=== PATIENT | female | born 1965 | race Caucasian/White ===

== ENCOUNTER → 2017-01-05 | Outpatient (CLI) | payer BC | END | disposition home or self-care (01) | DX: R26.2 Difficulty in walking, not elsewhere classified (principal); M25.561 Pain in right knee; M25.661 Stiffness of right knee, not elsewhere classified; M17.11 Unilateral primary osteoarthritis, right knee; M62.81 Muscle weakness (generalized); Z74.1 Need for assistance with personal care | CPT/HCPCS: 97161 GP; 97165 GO; 97530 GP; 97537 GO ==

== ENCOUNTER 2017-01-31 21:31 | Inpatient (IN) | payer BC, OTHER ==
[~2017-01-31] VITALS: Ht 154.9 cm; Wt 88.6 kg
[~2017-01-31 21:31] MED LIST: IBUPROFEN800 MG PO; SYNTHROID50 MCG PO; TRAMADOL HCL50 MG PO; VITAMIN D32000 UNI1 PO; ZOCOR20 MG PO
[2017-02-01 06:33] VITALS: BP 115/79
[2017-02-01 10:41] LABS: HEMATOCRIT 41.8 % (36.0-46.0); MCH 30.2 PG (29.0-34.0); MCHC 32.8 G/DL (30.0-36.0); MCV 92.3 FL (83-99); MEAN PLAT.VOLUME 9.3 uM^3 (9.5-12.4); PLATELET COUNT 257 K/uL (156-360); RBC DIS.WIDTH-CV 12.4 % (11.8-14.6); RBC DIS.WIDTH-SD 42.6 % (39-53); RED BLOOD COUNT 4.53 M/uL (3.80-5.20); WHITE BLOOD COUNT 9.2 K/uL (4.1-10.2)
[2017-02-01 11:36] VITALS: BP 147/75
[2017-02-01 16:13] VITALS: BP 117/71
[2017-02-01 20:05] VITALS: BP 104/64
[2017-02-01 23:14] VITALS: BP 116/67
[2017-02-02 04:13] VITALS: BP 122/70
[2017-02-02 06:23] LABS: MCV 90.7 FL (83-99)
[2017-02-02 06:44] LABS: ANION GAP 8 MEQ/L (2-14); CHLORIDE 107 MEQ/L (99-109); GFR ESTIMATE (CALCULATED) > 59 mL/min/; GLUCOSE 116 mg/dL (70-99); POTASSIUM 3.9 MEQ/L (3.7-5.4); SAMPLE HEMOLYSIS CHECK 0; SAMPLE ICTERIC CHECK 0; SAMPLE LIPEMIA CHECK 0; SODIUM 141 MEQ/L (136-147); UREA NITROGEN (BUN) 10 mg/dL (9-23)
[2017-02-02 07:26] VITALS: BP 127/65
[2017-02-02 16:01] VITALS: BP 140/76
[2017-02-02 19:32] VITALS: BP 145/76
[2017-02-02 23:45] VITALS: BP 118/62
[2017-02-03 03:14] VITALS: BP 127/72
[2017-02-03 07:27] LABS: HEMATOCRIT 43.1 % (36.0-46.0); MCV 90.7 FL (83-99)
[2017-02-03 08:06] VITALS: BP 125/80
[2017-02-03] MEDS ORDERED: SENNA PLUS TAB1 EACH PO (08:12)
[2017-02-03] MEDS ORDERED: ENDOCET 5-3251 EACH PO (08:12)
[2017-02-03] MEDS ORDERED: OXYCONTIN10 MG PO (08:12)
[2017-02-03] MEDS ORDERED: LOVENOX40 MG/0.4 SC (08:12)
== END 2017-02-03 17:10 | disposition home or self-care (01) | DRG 470 ==
LOC: 2SOUTH → ENRESERV 21:31 → 2SOUTH 02-01 05:24 → ENRESERV 02-01 09:24 → 2SOUTH 02-01 09:32 → 3EAST 02-01 11:00 → 2SOUTH 02-01 11:36 → 3EAST 02-03 17:10
PROVIDERS: Orthopaedic Surgery
PROC: 0SRC0J9 Replacement of Right Knee Joint with Synthetic Substitute, Cemented, Open Approach (ICD-10-PCS; principal; 2017-02-01)
DX: M17.11 Unilateral primary osteoarthritis, right knee (principal); E03.9 Hypothyroidism, unspecified; G43.909 Migraine, unspecified, not intractable, without status migrainosus; E55.9 Vitamin D deficiency, unspecified; G47.30 Sleep apnea, unspecified; E78.00 Pure hypercholesterolemia, unspecified; Z80.7 Family history of other malignant neoplasms of lymphoid, hematopoietic and related tissues; Z86.14 Personal history of Methicillin resistant Staphylococcus aureus infection; Z90.710 Acquired absence of both cervix and uterus
CPT/HCPCS: 73560; 80048; 85014; 85018; 85027; 94799; C1713; J0330; J0690; J1100; J1170; J1650; J1885; J2250; J2405; J3010; J3370; J7050; Q0175

== ENCOUNTER 2017-02-15 12:11 | Emergency (ER) | payer BC, OTHER ==
[~2017-02-15] VITALS: Ht 154.9 cm; Wt 78.3 kg
[~2017-02-15 12:11] MED LIST changes: +ENDOCET 5-3251 EACH PO; +LOVENOX40 MG/0.4 SC; +OXYCONTIN10 MG PO; +SENNA PLUS TAB1 EACH PO
[2017-02-15] MEDS ORDERED: BACTRIM,SEPT1 TABLET PO (19:52)
[2017-02-15] MEDS ORDERED: ATARAX,VISTARIL25 MG PO (19:52)
[2017-02-15] MEDS ORDERED: PREDNISONE20 MG PO (19:52)
[2017-02-15] MEDS ORDERED: KEFLEX500 MG PO (19:52)
[2017-02-15 20:37] VITALS: BP 108/90
== END 2017-02-15 20:39 | disposition home or self-care (01) ==
LOC: EME 12:11
DX: L24.0 Irritant contact dermatitis due to detergents (principal); L73.9 Follicular disorder, unspecified; Z96.651 Presence of right artificial knee joint; Z98.890 Other specified postprocedural states; Z88.6 Allergy status to analgesic agent
CPT/HCPCS: 99281; 99284; J0696; J1200; J2930; S0028

== ENCOUNTER 2017-05-23 21:27 | Inpatient (IN) | payer BC, OTHER ==
[~2017-05-23] VITALS: Ht 154.9 cm; Wt 81.6 kg
[~2017-05-23 21:27] MED LIST changes: +ATARAX,VISTARIL25 MG PO; +BACTRIM,SEPT1 TABLET PO; +BENADRYL50 MG PO; +KEFLEX500 MG PO; +PREDNISONE20 MG PO
[2017-05-24 07:51] VITALS: BP 122/74
[2017-05-24 13:45] LABS: HEMATOCRIT 43.8 % (36.0-46.0); HEMOGLOBIN 14.3 G/DL (11.9-15.5); MCH 29.5 PG (29.0-34.0); MCHC 32.6 G/DL (30.0-36.0); MCV 90.5 FL (83-99); PLATELET COUNT 272 K/uL (156-360); RBC DIS.WIDTH-CV 11.9 % (11.8-14.6); RBC DIS.WIDTH-SD 39.6 % (39-53); RED BLOOD COUNT 4.84 M/uL (3.80-5.20); WHITE BLOOD COUNT 8.2 K/uL (4.1-10.2)
[2017-05-24 15:15] VITALS: BP 140/82
[2017-05-24 20:31] VITALS: BP 134/82
[2017-05-24 23:50] VITALS: BP 124/69
[2017-05-25 04:05] VITALS: BP 126/79
[2017-05-25 05:46] LABS: HEMATOCRIT 41.2 % (36.0-46.0); HEMOGLOBIN 13.4 G/DL (11.9-15.5)
[2017-05-25 06:10] LABS: CHLORIDE 104 MEQ/L (99-109); CREATININE 0.6 MG/DL (0.6-1.3); GFR ESTIMATE (CALCULATED) > 59 mL/min/; GLUCOSE 109 mg/dL (70-99); POTASSIUM 4.1 MEQ/L (3.7-5.4); SODIUM 139 MEQ/L (136-147); UREA NITROGEN (BUN) 8 mg/dL (9-23)
[2017-05-25 08:10] VITALS: BP 133/78
[2017-05-25 12:00] VITALS: BP 136/80
[2017-05-25 15:30] VITALS: BP 130/75
[2017-05-25 20:09] VITALS: BP 130/80
[2017-05-26 00:03] VITALS: BP 134/81
[2017-05-26 03:39] VITALS: BP 134/64
[2017-05-26 04:54] LABS: HEMATOCRIT 39.3 % (36.0-46.0); HEMOGLOBIN 13.5 G/DL (11.9-15.5); MCV 89.9 FL (83-99)
[2017-05-26 07:38] VITALS: BP 141/86
[2017-05-26] MEDS ORDERED: LOVENOX40 MG/0.4 SC (08:30)
[2017-05-26] MEDS ORDERED: CELECOXIB200 MG PO (08:31)
[2017-05-26] MEDS ORDERED: DOCUSATE SODIU100 MG PO (08:31)
[2017-05-26] MEDS ORDERED: HYDROCODON-ACE1 EAC9 PO (08:32)
[2017-05-26 12:08] VITALS: BP 124/78
== END 2017-05-26 15:30 | disposition home health service (06) | DRG 470 ==
LOC: 2SOUTH → ENRESERV 21:27 → 2SOUTH 05-24 06:38 → 3WEST 05-24 14:53 → 2SOUTH 05-24 19:03 → 3WEST 05-26 15:30
PROVIDERS: Orthopaedic Surgery
PROC: 0SRD0J9 Replacement of Left Knee Joint with Synthetic Substitute, Cemented, Open Approach (ICD-10-PCS; principal; 2017-05-24)
DX: M17.12 Unilateral primary osteoarthritis, left knee (principal); Z68.33 Body mass index [BMI] 33.0-33.9, adult; E66.9 Obesity, unspecified; G47.30 Sleep apnea, unspecified; E03.9 Hypothyroidism, unspecified; E55.9 Vitamin D deficiency, unspecified; E78.00 Pure hypercholesterolemia, unspecified; G43.909 Migraine, unspecified, not intractable, without status migrainosus; Z96.651 Presence of right artificial knee joint; Z90.710 Acquired absence of both cervix and uterus; Z86.14 Personal history of Methicillin resistant Staphylococcus aureus infection; Z80.7 Family history of other malignant neoplasms of lymphoid, hematopoietic and related tissues
CPT/HCPCS: 73560; 80048; 85014; 85018; 85027; 94660; C1713; J0131; J0330; J0690; J1100; J1170; J1650; J2250; J2405; J2795; J3010; J3370; J7050

== ENCOUNTER 2017-08-12 10:52 | Day surgery (SDC) | payer BC, OTHER ==
[~2017-08-12] VITALS: Ht 154.9 cm; Wt 86.2 kg
[~2017-08-12 10:52] MED LIST changes: +ADVIL PM1 TABLET PO; +CELECOXIB200 MG PO; +DOCUSATE SODIU100 MG PO; +HYDROCODON-ACE1 EAC9 PO
[2017-08-12 14:50] VITALS: BP 1234/75; BP 124/75
[2017-08-12 15:56] VITALS: BP 108/72
== END 2017-08-12 16:00 | disposition home or self-care (01) ==
LOC: SDC 10:52
PROC: 0SNDXZZ Release Left Knee Joint, External Approach (ICD-10-PCS; principal; 2017-08-12)
DX: M24.662 Ankylosis, left knee (principal); Z98.890 Other specified postprocedural states; Z96.653 Presence of artificial knee joint, bilateral; E78.00 Pure hypercholesterolemia, unspecified; E03.9 Hypothyroidism, unspecified; G47.30 Sleep apnea, unspecified; Z86.14 Personal history of Methicillin resistant Staphylococcus aureus infection; E66.9 Obesity, unspecified; Z68.38 Body mass index [BMI] 38.0-38.9, adult
CPT/HCPCS: 73560; 76000; J0330; J1100; J1170; J2250; J2405; J3010